=== PATIENT | female | born 1990 | race Two or more races ===

== ENCOUNTER 2025-07-18 12:59 | Emergency (ER) | payer MEDICAID, SELFPAY ==
[2025-07-18 13:02] VITALS: BP 138/99; PULSE 106; RESP 19; TEMP 36.6; O2SAT 98
[2025-07-18 13:10] VITALS: PULSE 120; O2SAT 97
--- NOTE | 2025-07-18 13:46 | PD.EDADULT ---
ED General RME/HPI General Chief complaint: General Adult/Misc Complain Stated complaint: FEELS LIKE SHE HAS LEECHES IN HER HAIR Time Seen by Provider: 07/18/25 13:02 Arrival date/time: 07/18/25 12:59 RME / HPI RME / HPI narrative: 34-year-old female patient with significant history of psych disorder, came in for multiple complaints. One of the complaints is discomfort and restless/late yesterday scalp has been ongoing for several days, also complained of dry lips, also complaining of smoking withdrawal, also complaining of lesions to the right foot in between the digits. Has been ongoing for several weeks. Patient is unkept looks like have been showered for a while. Patient is homeless. Related Data Home Medications ?Medication ?Instructions ?Recorded ?Confirmed quetiapine 50 mg tablet 100 mg PO QDAY 09/17/20 03/18/24 sertraline 50 mg tablet 50 mg PO QDAY 09/17/20 03/18/24 ziprasidone HCl 60 mg capsule 60 mg PO BID 09/17/20 03/18/24 Previous Rx's ?Medication ?Instructions ?Recorded ferrous sulfate, dried 159 mg (45 159 mg PO BID #60 tabs 07/18/25 mg iron) tablet,extended release ketoconazole 1 % shampoo (Nizoral 1 applic topical Q3D #200 mL 07/18/25 A-D) mineral oil-hydrophil petrolat 1 applic topical TID PRN dry skin 07/18/25 topical ointment (petrolatum #454 grams topical ointment) nicotine (polacrilex) 2 mg gum 2 mg buccal Q8H PRN nicotine 07/18/25 cravings #50 ea terbinafine HCl 1 % topical cream 1 applic topical BID #30 grams 07/18/25 Allergies Allergy/AdvReac Type Severity Reaction Status Date / Time No Known Allergies Allergy Verified 07/18/25 13:15 Review of Systems Review of Systems Narrative Review of Systems: Review of system reviewed and within normal limits except mentioned in HPI ED Exam Narrative Physical exam: VITAL SIGNS: Reviewed. GENERAL APPEARANCE: Alert and interactive, follows commands, no acute distress, HEAD AND FACE: Non-traumatic. Dry scalp, I did not notice any glitches, there is some excoriation on the scalp ENT: PERRL, pink conjunctivitis, eyelid no trauma, Mucous membrane moist. NECK: Supple, nontender, no nuchal rigidity. CHEST: No tenderness, no crepitus, no paradoxical movement, no retractions. LUNGS: Clear, well ventilated, symmetric, no rales, no wheezing, no ronchi, no stridor, good breath sounds bilaterally. HEART: Regular rate, regular rhythm, no murmur, no gallops. ABDOMEN: Soft, positive bowel sounds, nondistended, no guarding, nontender, no rebound, no masses, RECTAL: Deferred. GENITAL: Deferred. NEUROLOGICAL: Gross motor function intact sensory function intact, Appropriate for age. MUSCULOSKELETAL: low back nontender, full range of motion. EXTREMITIES: Nontender, full range of motion. Moist excoriation noted on the feet , between the digit right foot SKIN: Color pink, dry, no rash, no lacerations, no abrasions, no contusions. LYMPHATICS: Deferred. Course Quality Measures none Vital Signs Vital signs: Vital Signs Temperature 97.8 F 07/18/25 13:02 Pulse Rate 106 H 07/18/25 13:02 Respiratory Rate 19 07/18/25 13:02 Blood Pressure 138/99 H 07/18/25 13:02 Pulse Oximetry (%) 98 07/18/25 13:02 Oxygen Delivery Method Room Air 07/18/25 13:02 Discharge Plan Plan Patient Disposition: HOME (Self Care) Discharge Disposition comment: staqble Prescriptions/Referrals Prescriptions/Med Rec: New nicotine (polacrilex) 2 mg gum 2 mg buccal Q8H PRN (Reason: nicotine cravings) Qty: 50 0RF terbinafine HCl 1 % cream 1 applic topical BID Qty: 30 0RF petrolatum Ointment 1 applic topical TID PRN (Reason: dry skin) Qty: 454 0RF Nizoral A-D 1 % shampoo 1 applic topical Q3D Qty: 200 0RF ferrous sulfate, dried 159 mg (45 mg iron) tablet extended release 159 mg PO BID Qty: 60 0RF No Action ziprasidone HCl 60 mg capsule 60 mg PO BID Patient Comments: TAKE 1 CAPSULE BY MOUTH TWICE A DAY sertraline 50 mg tablet 50 mg PO QDAY Patient Comments: TAKE 1 TABLET BY MOUTH EVERY DAY IN THE MORNING quetiapine 50 mg tablet 100 mg PO QDAY Patient Comments: TAKE 1 TABLET BY MOUTH EVERY DAY AT BEDTIME NEEDED Problem List Clinical Impression: Athlete's foot, Tinea capitis Patient/Caregiver Discharge Instructions Discharge Activity: activity as tolerated Education Materials: ED Ringworm of the Scalp Print Language: Kiswahili Stand Alone Forms: Jazlyn Award Info., Patient Portal Info Letter PA/JAMEL Supervising Physician ELI/JAMEL Supervising Physician: MD Johann MDM Narrative MDM hospital course: 34-year-old female patient with significant history of psych disorder, came in for multiple complaints. One of the complaints is discomfort and restless/late yesterday scalp has been ongoing for several days, also complained of dry lips, also complaining of smoking withdrawal, also complaining of lesions to the right foot in between the digits. Has been ongoing for several weeks. Patient is unkept looks like have been showered for a while. Patient is homeless. Patient does not need any imaging or workup at this time. Patient stable for discharge home. Will discharge provide please patient nicotine gum, petrolatum gel for the dry mouth, Nizoral shampoo, and terbinafine cream patient will also be prescribed ferrous sulfate. She told me she had a history of iron anemia in the past. She denies any vaginal bleeding spotting or vomiting blood denies any blood in the stool Stable discharge home
== END 2025-07-18 14:08 | disposition home or self-care (01) ==
LOC: SERX 13:55
PROVIDERS: Emergency Provider Family Medicine; PCP Nurse Practitioner Family
DX: B35.0 Tinea barbae and tinea capitis (principal); B35.3 Tinea pedis
CPT/HCPCS: 99281

== ENCOUNTER 2025-10-06 17:45 | Emergency (ER) | payer MEDICAID, SELFPAY ==
[2025-10-06 17:47] VITALS: PULSE 82; RESP 20; O2SAT 97; BMI 19.8
[2025-10-06 18:13] VITALS: BP 134/79; PULSE 76; RESP 18; TEMP 36.3; O2SAT 100
--- NOTE | 2025-10-06 19:36 | XR_ITS ---
EXAMINATION: Bilateral ribs with AP chest 4 views TECHNIQUE: AP upright chest single view, RPO LPO bilateral ribs 3 views total 4 views Date and time: October 06, 2025, 1956 hours INDICATIONS: Patient fell today with injury to the chest, bilateral rib pain FINDINGS: Normal heart size No pneumothorax No acute rib fractures IMPRESSION: No pneumothorax pulmonary contusion or hemothorax No acute rib fractures
--- NOTE | 2025-10-06 19:38 | XR_ITS ---
Examination: CT abdomen and pelvis without contrast. Coronal 3-D reconstructions. Sagittal 2-D reconstructions. Date and time of exam: October 06, 2025, 2054 hours, comparison September 29, 2010 INDICATIONS: Rib pain right flank pain beginning this morning, history kidney stones CTDI: vol (mGy): 4.21 DLP: (mGycm): 200 Technique: Axial images of the abdomen have been obtained, 3 mm slice thickness Intravenous contrast material has not been administered. Low dose protocols were performed. One or more of the following dose reduction techniques were used; automated exposure control, adjustment of the mA and/or KV according to patient size, use of iterative reconstruction technique. Findings: No focal liver or splenic lesions No gallstones Bilateral 1 to 3 mm renal calculi Minimal right hydronephrosis 3 mm proximal right ureteral calculus Mild small bowel ileus No pericecal inflammatory change Normal appendix No bladder mass or bladder calculi Satisfactory alignment lumbar vertebral bodies IMPRESSION: Minimal right hydronephrosis, 3 mm proximal right ureteral calculus
[2025-10-06 19:58] LABS: Basophils # (Auto) 0.1 Thou/mm3 (0.0-0.2); Basophils % (Auto) 0 % (0-2.5); Eosinophils # (Auto) 0.1 Thou/mm3 (0.0-0.5); Eosinophils % (Auto) 1 % (0-10); Hematocrit 36.6 % (36.0-46.0); Hemoglobin 11.8 g/dL (12.0-16.0); Immature Granulocytes Auto 0.07 Thou/mm3 (0.00-0.00); Lymphocytes # (Auto) 2.3 Thou/mm3 (1.0-4.8); Lymphocytes % (Auto) 13 % (10-50); Mean Corpuscular HGB Conc 32.2 g/dl (31.0-37.0); Mean Corpuscular Hemoglobin 26.2 pg (25.0-35.0); Mean Corpuscular Volume 81 fL (80-100); Monocytes # (Auto) 0.4 Thou/mm3 (0.0-0.8); Monocytes % (Auto) 2 % (0-12); Neutrophils # (Auto) 14.3 Thou/mm3 (1.8-7.7); Neutrophils % (Auto) 83 % (37-80); Nucleated Red Blood Cell # 0.00 Thou/mm3 (0.00-0.00); Nucleated Red Blood Cell % 0 /100 WBC (0); Platelet Count 369 Thou/mm3 (140-440); RDW Standard Deviation 47.2 fL (36.4-46.3); Red Blood Count 4.51 Miln/mm3 (4.00-5.20); White Blood Count 17.1 Thou/mm3 (3.6-11.0)
[2025-10-06 19:59] LABS: Collection Type, Urine Clean Catch
[2025-10-06 20:02] LABS: HCG Qualitative,Urine Negative
[2025-10-06 20:05] LABS: Amorphous Crystals,Urine Present (Absent); Bacteria,Urine 1+; Bilirubin,Urine Negative (Negative); Blood,Urine 3+ (Negative); Clarity,Urine Turbid (Clear/Hazy); Color,Urine Lt-Yellow (Lt Yel-Yel); Glucose, Urine Negative (Negative); Ketones,Urine Negative (Negative); Leukocyte Esterase,Urine Negative (Negative); Nitrite,Urine Negative (Negative); PH,Urine 7.0 (5.0-7.0); Protein,Urine Trace (Neg - Trace); RBC,Urine 1310 /hpf (0-3); Specific Gravity,Urine 1.016 (1.001-1.035); Squamous Epithelial Cell,Urine 5 /hpf (0-5); Triple Phosphate Crystal,Urine Rare; Urobilinogen,Urine Negative mg/dL (0.0-1.0); WBC,Urine 3 /hpf (0-5)
[2025-10-06 20:16] LABS: Alanine Aminotransferase 13 U/L (10-49); Albumin, Serum 4.5 gm/dL (3.5-5.0); Albumin/Globulin Ratio 1.8 (1.2-2.2); Alkaline Phosphatase 75 U/L (46-116); Anion Gap 9 (7-16); Aspartate Amino Transferase 19 U/L (0-34); BUN/Creatinine Ratio 25 Ratio (12-20); Bilirubin,Total 0.3 mg/dL (0.3-1.2); Blood Urea Nitrogen 15 mg/dL (9-23); Calcium 9.4 mg/dL (8.3-10.6); Calcium (Corrected) 9.4 mg/dL (8.5-10.1); Carbon Dioxide 26.8 mMol/L (20.0-31.0); Chloride 105 mMol/L (98-107); Creatinine (Component) 0.6 mg/dL (0.6-1.3); Estimated Creatinine Clearance 87.6 mL/min (>60); Globulin 2.5 gm/dL (2.3-3.5); Glucose 96 mg/dL (74-106); Lipase 29 U/L (12-53); Osmolality,Calculated 282 (275-295); Potassium 3.8 mMol/L (3.4-5.1); Sodium 141 mMol/L (136-145); Total Protein 7.0 gm/dL (5.7-8.2); eGFR > 60 See Note
[2025-10-06] MEDS: SODIUM CHLORIDE 0.9% 1000 ML 1,000 ML 999 ML IV (23:47)
[2025-10-06 23:59] LABS: Lactate (Lactic Acid) 0.9 mMol/L (0.4-2.0)
[2025-10-06] MEDS: cefTRIAXone 2 GM in SODIUM CHLORIDE 0.9% (Popper) 50 ML IV (23:59)
[2025-10-07] MEDS: ONDANSETRON INJ 2 MG/ML INJ 2 ML 4 MG IVP (00:29)
[2025-10-07 00:41] VITALS: BP 109/75; PULSE 73; RESP 16; TEMP 36.6; O2SAT 99
[2025-10-07] MEDS: TAMSULOSIN HCL 0.4 MG CAPSULE PO (00:52)
[2025-10-07 01:13] LABS: Basophils # (Auto) 0.0 Thou/mm3 (0.0-0.2); Basophils % (Auto) 0 % (0-2.5); Eosinophils # (Auto) 0.1 Thou/mm3 (0.0-0.5); Eosinophils % (Auto) 1 % (0-10); Hematocrit 32.9 % (36.0-46.0); Hemoglobin 10.5 g/dL (12.0-16.0); Immature Granulocytes Auto 0.04 Thou/mm3 (0.00-0.00); Lymphocytes # (Auto) 3.5 Thou/mm3 (1.0-4.8); Lymphocytes % (Auto) 30 % (10-50); Mean Corpuscular HGB Conc 31.9 g/dl (31.0-37.0); Mean Corpuscular Hemoglobin 26.1 pg (25.0-35.0); Mean Corpuscular Volume 82 fL (80-100); Monocytes # (Auto) 0.4 Thou/mm3 (0.0-0.8); Monocytes % (Auto) 3 % (0-12); Neutrophils # (Auto) 7.6 Thou/mm3 (1.8-7.7); Neutrophils % (Auto) 66 % (37-80); Nucleated Red Blood Cell # 0.00 Thou/mm3 (0.00-0.00); Nucleated Red Blood Cell % 0 /100 WBC (0); Platelet Count 326 Thou/mm3 (140-440); RDW Standard Deviation 47.6 fL (36.4-46.3); Red Blood Count 4.02 Miln/mm3 (4.00-5.20); White Blood Count 11.6 Thou/mm3 (3.6-11.0)
[2025-10-07 02:17] VITALS: BP 104/65; PULSE 81; RESP 18; TEMP 36.8; O2SAT 98
--- NOTE | 2025-10-07 02:29 | PD.EDFMALE ---
ED Female Urogenital RME/HPI General Chief complaint: Back Pain/Injury Stated complaint: RIB PAIN Time Seen by Provider: 10/06/25 18:32 Arrival date/time: 10/06/25 17:45 This is a case of 35-year-old female with no medical history came in in the emergency room due to right flank pain rating to her right rib and right side of ABDOMEN for 3 days associated with nausea vomiting no other symptoms noted no fever no chills no urinary symptoms persistence of the symptoms thus patient decided to sought consult here in the emergency ROOM Limitations: no limitations Related Data Home Medications ?Medication ?Instructions ?Recorded ?Confirmed quetiapine 50 mg tablet 100 mg PO QDAY 09/17/20 03/18/24 sertraline 50 mg tablet 50 mg PO QDAY 09/17/20 03/18/24 ziprasidone HCl 60 mg capsule 60 mg PO BID 09/17/20 03/18/24 Previous Rx's ?Medication ?Instructions ?Recorded ferrous fumarate 324 mg (106 mg 324 mg PO BID #60 tabs 07/18/25 iron) tablet ferrous sulfate, dried 159 mg (45 159 mg PO BID #60 tabs 07/18/25 mg iron) tablet,extended release ketoconazole 1 % shampoo (Nizoral 1 applic topical Q3D #200 mL 07/18/25 A-D) ketoconazole 1 % shampoo (Nizoral 1 applic topical Q3D #200 mL 07/18/25 A-D) mineral oil-hydrophil petrolat 1 applic topical TID PRN dry skin 07/18/25 topical ointment (petrolatum #454 grams topical ointment) mineral oil-hydrophil petrolat 1 applic topical TID PRN dry skin 07/18/25 topical ointment (petrolatum #454 grams topical ointment) nicotine (polacrilex) 2 mg gum 2 mg buccal Q8H PRN nicotine 07/18/25 cravings #50 ea nicotine (polacrilex) 2 mg gum 2 mg buccal Q8H PRN nicotine 07/18/25 cravings #50 ea terbinafine HCl 1 % topical cream 1 applic topical BID #30 grams 07/18/25 terbinafine HCl 1 % topical cream 1 applic topical BID #30 grams 07/18/25 cephalexin 500 mg capsule 500 mg PO QID #40 caps 10/07/25 ibuprofen 800 mg tablet 800 mg PO Q8H PRN pain #20 tabs 10/07/25 ondansetron 4 mg disintegrating 4 mg PO Q8H #20 tabs 10/07/25 tablet tamsulosin 0.4 mg capsule (Flomax) 0.4 mg PO QDAY #10 caps 10/07/25 Allergies Allergy/AdvReac Type Severity Reaction Status Date / Time No Known Allergies Allergy Verified 10/06/25 17:53 Review of Systems Review of Systems Systems Reviewed: All systems reviewed, normal except as documented Constitutional Constitutional: Reports system reviewed and no additional complaints, except as documented and Reports as per HPI Cardiovascular Cardiovascular: Reports system reviewed and no additional complaints, except as documented and Reports as per HPI Respiratory Respiratory: Reports system reviewed and no additional complaints, except as documented and Reports as per HPI Gastrointestinal Gastrointestinal: Reports system reviewed and no additional complaints, except as documented Genitourinary Genitourinary: Reports system reviewed and no additional complaints, except as documented and Reports as per HPI Musculoskeletal Musculoskeletal: Reports system reviewed and no additional complaints, except as documented and Reports as per HPI Neurologic Neurologic: Reports system reviewed and no additional complaints, except as documented Past Medical History Past Medical History CARDIAC: Negative Congestive Heart Failure RESPIRATORY: Negative Chronic Obstructive Pulmonary Disease (COPD) GENITOURINARY: Negative Renal Disease ENDOCRINE: Negative Diabetes Mellitus Type 1 or Diabetes Mellitus Type 2 PSYCHO/SOCIAL: Positive Psychiatric Problems and Recreational Drug Use Social History SMOKING STATUS: Current every day smoker ED Exam General Limitations: Present no limitations General appearance: Present alert, in no apparent distress and other (Patient is awake alert oriented not in distress nontoxic looking well-hydrated well nourished) Head Head exam: Present atraumatic, normocephalic and normal inspection Eye Eye exam: Present normal appearance, PERRL and EOMI ENT ENT exam: Present normal exam, normal oropharynx and mucous membranes moist Neck Neck exam: Present normal inspection, full ROM and trachea midline; Absent tenderness, meningismus, lymphadenopathy or thyromegaly Chest Chest inspection: Present normal inspection, symmetric chest wall rise and tenderness (Mild tenderness on right anterolateral rib but no crepitation no deformity no rash no abscess no palpable rib fracture no subcutaneous emphysema) Respiratory Respiratory exam: Present normal lung sounds bilaterally; Absent respiratory distress, wheezes, stridor, accessory muscle use or prolonged expiratory phase Cardiovascular Cardiovascular exam: Present regular rate, normal rhythm and normal heart sounds; Absent bradycardia, tachycardia, irregular rhythm, systolic murmur or diastolic murmur Abdominal Exam Abdominal exam: Present soft, tenderness and normal bowel sounds; Absent distention, guarding, rigidity, diminished bowel sounds, hyperactive bowel sounds, hypoactive bowel sounds, organomegaly, trauma, incision, psoas sign, obturator sign, heel tap sign, Blood's sign, Rovsing's sign, tenderness at McBurney's Point, ascites, mass, bruit, pulsatile mass, hernia or scar Extremities Exam Extremities exam: Present normal inspection and full ROM Back Exam Back exam: Present normal inspection and full ROM Neurological Exam Neurological exam: Present alert, oriented X3, CN II-XII intact, normal gait and reflexes normal; Absent motor sensory deficit Psychiatric Psychiatric exam: Present normal affect and normal mood Skin Skin exam: Present warm, dry, intact, normal color and other (Excellent skin turgor) Course Quality Measures none Orders Category Date Time Status Insert IV NOW Care 10/06/25 23:[address] abdomen pelvis wo con Stat Exams 10/06/25 19:38 Completed XR ribs BI 3V Stat Exams 10/06/25 19:36 Completed Blood Culture (Lab) Stat Lab 10/06/25 23:52 Received CBC Stat Lab 10/06/25 19:49 Completed CBC Stat Lab 10/07/25 00:56 Completed Comprehensive Metabolic Panel Stat Lab 10/06/25 19:49 Completed HCG Qualitative,Urine Stat Lab 10/06/25 19:50 Completed Lactic Acid [Lactate (Lactic Acid)] Stat Lab 10/06/25 23:46 Completed Lipase Stat Lab 10/06/25 19:49 Completed Urinalysis Stat Lab 10/06/25 19:50 Completed Ondansetron Inj [Zofran Inj] Med 10/06/25 23:58 Discontinued 4 mg IVP X1 ONE Sodium Chloride 0.9% 1000 ml [Ns] 1,000 ml Med 10/06/25 23:27 Discontinued IV 999 mls/hr Tamsulosin HCl [Flomax] Med 10/07/25 00:36 Discontinued 0.4 mg PO X1 ONE cefTRIAXone [Rocephin] 2 gm Med 10/06/25 23:27 Discontinued SODIUM CHLORIDE 0.9% (Popper) [Ns 0.9% (P)] 50 ml IV X1 Vital Signs Vital signs: Vital Signs Temperature 97.4 F 10/06/25 18:13 Pulse Rate 76 10/06/25 18:13 Respiratory Rate 18 10/06/25 18:13 Blood Pressure 134/79 H 10/06/25 18:13 Pulse Oximetry (%) 100 10/06/25 18:13 Oxygen Delivery Method Room Air 10/06/25 18:13 Oxygen saturation is 100% Urogenital - Female MDM Narrative MDM Narrative:: This is a case of 35-year-old female with no medical history came in in the emergency room due to right flank pain rating to her right rib and right side of ABDOMEN for 3 days associated with nausea vomiting no other symptoms noted no fever no chills no urinary symptoms persistence of the symptoms thus patient decided to sought consult here in the emergency ROOM physical examination patient is awake alert oriented not in distress nontoxic looking well-hydrated well-nourished no signs and symptoms of sepsis nor dehydration or acute abdomen patient have excellent skin turgor abdominal exam is benign nonsurgical no guarding no rebound no rigidity mild tenderness on the right flank but no CVA tenderness negative psoas negative straight or negative Rovsing's negative McBurney's negative Blood sign negative CVA tenderness patient have mild tenderness on the right anterolateral rib but no crepitation no deformity no swelling no cellulitis no rash no palpable rib fracture no subcutaneous emphysema blood test initially patient WBC was 17.1 I rechecked the lactic acid and noted to be normal no anemia kidney and liver function is normal no electrolyte imbalance lipase is normal urinalysis showed WBC in the urine CT scan of the abdomen pelvis showed a hydronephrosis and ureteral stone patient was advised to follow-up with PCP in 2 days for reevaluation a bolus of normal saline was given plus Flomax and 2 g of ceftriaxone for urinary tract WBC was repeated after hydration and markedly improved and noted to be 11.4 patient was advised to see urologist for kidney stone and hydronephrosis for worsening symptoms or any emergent concern return precaution in the ER is advised Patient was discharged with comfortable condition walking with stable gait. Patient verbalized no further complains explained diagnosis and answered patient question. Patient is comfortable with the proposed management plan including the need to follow up with his/her primary care physician and any specialist if applicable Discussed patient for any urgent condition or worsening sx, He/She needed to go to emergency room immediately or call 911. Patient acknowledge the responsibility to follow up as instructed and to monitor her/his symptoms. For any persistence of the symptoms for more than 3-5 days return precaution advised. Discussed the result of the test and was given printed discharge instruction Patient data External records reviewed:: [facility] previous records Clinical information provided by:: patient Social determinants that could affect healthcare access:: none Patient has the following chronic illnesses:: None How is presenting disease/condition affected by chronic disease/condition?: no chronic disease Evaluation data The following diagnostics were reviewed and interpreted by me:: lab results and radiology exam(s) Lab and/or radiology exams considered but not ordered:: Reviewed Interpretation Summary: Reviewed Medications / Prescriptions Medications or Prescriptions considered but not ordered:: Given Medication administrations:: Medication Administration History Discontinued Medications Sodium Chloride (Ns) 1,000 mls @ 999 mls/hr IV .Q1H1M ONE Stop: 10/07/25 00:27 Last Infusion: 10/07/25 00:31 Dose: Infused Documented By: Admin: 10/06/25 23:47 Dose: 999 mls/hr Documented By: BD Ceftriaxone Sodium 2 gm/ (Sodium Chloride) 50 mls @ 100 mls/hr IV X1 ONE Stop: 10/06/25 23:56 Last Infusion: 10/07/25 00:30 Dose: Infused Documented By: Admin: 10/06/25 23:59 Dose: 100 mls/hr Documented By: BD Ondansetron HCl (Ondansetron Inj 2 Mg/Ml Inj 2 Ml) 4 mg IVP X1 ONE; Protocol Stop: 10/06/25 23:59 Last Admin: 10/07/25 00:29 Dose: 4 mg Documented By: BD Tamsulosin HCl (Tamsulosin Hcl 0.4 Mg Capsule) 0.4 mg PO X1 ONE Stop: 10/07/25 00:37 Last Admin: 10/07/25 00:52 Dose: 0.4 mg Documented By: BD Given Consultations Consultation(s) initiated? (list below): No Diagnosis Urogenital Female Differential Diagnosis: urinary tract infection and other (Kidney stone urine) Most likely diagnosis given after review of the tests above:: Urinary tract infection ureteral stone and hydronephrosis Admission Indicated Admission indicated?: not indicated Explain why admission is indicated or not indicated:: Not indicated Admission Request Was there a request for admission?: No Disposition Plan Disposition Plan: Discharge Discharge Attestation Discharge Attestation: The patient and all family members were given an opportunity to ask questions and understood the discharge instructions. Discharge instructions specifically effects, indications for sooner follow up or return to the emergency department, and the expected course of current diagnosis. Patient condition: Stable Discharge Plan Plan Patient Disposition: HOME (Self Care) Patient condition on transfer: Stable Prescriptions/Referrals Prescriptions/Med Rec: New cephalexin 500 mg capsule 500 mg PO QID Qty: 40 0RF ibuprofen 800 mg tablet 800 mg PO Q8H PRN (Reason: pain) Qty: 20 0RF tamsulosin [Flomax] 0.4 mg capsule 0.4 mg PO QDAY Qty: 10 0RF ondansetron 4 mg tablet,disintegrating 4 mg PO Q8H Qty: 20 0RF No Action ziprasidone HCl 60 mg capsule 60 mg PO BID Patient Comments: TAKE 1 CAPSULE BY MOUTH TWICE A DAY sertraline 50 mg tablet 50 mg PO QDAY Patient Comments: TAKE 1 TABLET BY MOUTH EVERY DAY IN THE MORNING quetiapine 50 mg tablet 100 mg PO QDAY Patient Comments: TAKE 1 TABLET BY MOUTH EVERY DAY AT BEDTIME NEEDED nicotine (polacrilex) 2 mg gum 2 mg buccal Q8H PRN (Reason: nicotine cravings) Qty: 50 0RF terbinafine HCl 1 % cream 1 applic topical BID Qty: 30 0RF petrolatum Ointment 1 applic topical TID PRN (Reason: dry skin) Qty: 454 0RF Nizoral A-D 1 % shampoo 1 applic topical Q3D Qty: 200 0RF ferrous sulfate, dried 159 mg (45 mg iron) tablet extended release 159 mg PO BID Qty: 60 0RF nicotine (polacrilex) 2 mg gum 2 mg buccal Q8H PRN (Reason: nicotine cravings) Qty: 50 0RF terbinafine HCl 1 % cream 1 applic topical BID Qty: 30 0RF Nizoral A-D 1 % shampoo 1 applic topical Q3D Qty: 200 0RF ferrous fumarate 324 mg (106 mg iron) tablet 324 mg PO BID Qty: 60 0RF petrolatum Ointment 1 applic topical TID PRN (Reason: dry skin) Qty: 454 0RF Referrals: No Primary/Family,Physician [Primary Care Provider] - In 1 week Problem List Clinical Impression: Flank pain, Rib pain, Ureteral stone, Urinary tract infection, Hydronephrosis Patient/Caregiver Discharge Instructions Education Materials: Urinary Tract Infections in Women, Kidney Stones Your Evaluation, Understanding Hydronephrosis, ED Pain, Acute, Uncertain Cause Additional Instructions: Follow-up with your primary care physician in 2 days for reevaluation and to be referred to urologist for further evaluation and treatment of ureteral stone and hydronephrosis recurrence persistent worsening symptoms or any emergent concerns such as blood in urine fever chills nausea vomiting etc. return to the emergency room immediately or call 911 take your medication as directed finish the course of antibiotic keep hydrated Pedialyte Gatorade for hydration is ADVISED Print Language: Croatian Stand Alone Forms: Jazlyn Award Info., Patient Portal Info Letter PA/INSULATION WORKER INTERIOR SURFACE Supervising Physician PA/INSULATION WORKER INTERIOR SURFACE Supervising Physician: dR FRANCO BONILLA
[2025-10-07 03:11] VITALS: RESP 16
== END 2025-10-07 03:12 | disposition home or self-care (01) ==
PROVIDERS: Nurse Practitioner Family; Emergency Provider Emergency Medicine
DX: N13.6 Pyonephrosis (principal); R07.89 Other chest pain
CPT/HCPCS: 36415; 71110; 74176; 80053; 81001; 81025; 83605; 83690; 85025; 87040; 96365; 96375; 99284; J0696; J2405; J7030; J7050; A9270